=== PATIENT | female | born 1985 | race Caucasian/White ===

== ENCOUNTER 2021-01-20 11:37 | Emergency (ER) | payer OTHER ==
[~2021-01-20] VITALS: Ht 172.7 cm; Wt 90.0 kg
[2021-01-20 11:42] VITALS: BP 130/87
== END 2021-01-20 15:38 | disposition left against medical advice (07) ==
LOC: ER 11:37
DX: Z53.21 Procedure and treatment not carried out due to patient leaving prior to being seen by health care provider (principal)